=== PATIENT | female | born 1950 | race Caucasian/White ===

== ENCOUNTER → 2019-05-03 | Outpatient (CLI) | payer OTHER | LOC: M.ULTRA 13:50 | DX: E21.3 Hyperparathyroidism, unspecified (principal); E04.1 Nontoxic single thyroid nodule ==

== ENCOUNTER → 2021-06-08 | Outpatient (CLI) | payer OTHER | LOC: M.ULTRA 12:41 | PROVIDERS: ATTEND Registered Nurse Diabetes Educator | DX: E04.2 Nontoxic multinodular goiter (principal); E83.52 Hypercalcemia ==